=== PATIENT | male | born 1960 ===

== ENCOUNTER 2017-06-19 11:12 | Emergency (ER) | payer BC ==
--- NOTE | 2017-06-19 13:56 | C.PDOC ---
History Of Present Illness 56 year old male presents to the ED for evaluation of left lower back pain which has been constant for the past 3 days. Patient states the pain radiates down to his buttocks. Patient reports he has a job that requires constant heavy lifting and bending over, which has been worsening his pain. He denies urinary/ bowel incontinence, urinary/bowel incontinence, upper/lower extremity numbness/ weakness. Time Seen by Provider: 06/19/17 11:51 Chief Complaint (Nursing): Lower Extremity Problem/Injury History Per: Patient History/Exam Limitations: no limitations Onset/Duration Of Symptoms: Days (3) Current Symptoms Are (Timing): Still Present Additional History Per: Patient Past Medical History Reviewed: Historical Data, Nursing Documentation, Vital Signs Vital Signs: Last Vital Signs Temp 98.0 F 06/19/17 14:28 Pulse 80 06/19/17 14:28 Resp 18 06/19/17 14:28 BP 136/72 06/19/17 14:28 Pulse Ox 100 06/19/17 16:41 - Medical History PMH: HTN Surgical History: No Surg Hx Family History: States: Unknown Family Hx - Social History Hx Alcohol Use: Yes Hx Substance Use: No - Immunization History Hx Tetanus Toxoid Vaccination: Yes Hx Influenza Vaccination: No Hx Pneumococcal Vaccination: No Review Of Systems Genitourinary: Negative for: Incontinence Musculoskeletal: Positive for: Back Pain (left-sided, lower ) Neurological: Negative for: Weakness, Numbness Physical Exam - Physical Exam Appears: Non-toxic, No Acute Distress Skin: Normal Color, Warm, Dry, No Rash Head: Atraumatic, Normacephalic Eye(s): bilateral: Normal Inspection, PERRL, EOMI Oral Mucosa: Moist Neck: Normal ROM, No Midline Cervical Tenderness, No Paracervical Tenderness, Supple Chest: Symmetrical, No Deformity, No Tenderness Cardiovascular: Rhythm Regular, No Friction Rub, No Murmur Respiratory: Normal Breath Sounds, No Rales, No Rhonchi, No Wheezing Gastrointestinal/Abdominal: Soft, No Tenderness Back: No Vertebral Tenderness, Paraspinal Tenderness (left, lumbar ) Extremity: Normal ROM, No Tenderness, Capillary Refill (less than 2 seconds ), No Deformity, No Swelling Neurological/Psych: Normal Speech, Normal Cognition, Normal Sensation Gait: Steady ED Course And Treatment O2 Sat by Pulse Oximetry: 100 (on RA) Pulse Ox Interpretation: Normal Medical Decision Making Medical Decision Making: Progress: Flexeril PO and Toradol IM. On re-exam, the patient reports improvement of symptoms. Lungs are CTA, heart is RRR, abdomen is soft, non-tender and tolerating PO well. Ambulatory in the ED with steady gait. Follow up with the medical doctor with 1-2 days. return if worsened. Disposition - Disposition Referrals: Connor Gordillo MD [Staff Provider] - Disposition: HOME/ ROUTINE Disposition Time: 13:53 Condition: GOOD Additional Instructions: Follow up with the medical doctor/clinic within 1-2 days, Return if worsened. Prescriptions: Cyclobenzaprine [Cyclobenzaprine HCl] 10 mg PO BID #14 tab Naproxen [Naprosyn] 500 mg PO BID #20 tab Instructions: Sciatica (DC) Forms: [employer] (Danish), School Excuse Print Language: BURKINAN - Clinical Impression Clinical Impression: Sciatica - PA / STOCK TAKER / Resident Statement MD/DO has reviewed & agrees with the documentation as recorded. - Scribe Statement The provider has reviewed the documentation as recorded by the Scribe (Carlee Alex) All medical record entries made by the Scribe were at my direction and personally dictated by me. I have reviewed the chart and agree that the record accurately reflects my personal performance of the history, physical exam, medical decision making, and the department course for this patient. I have also personally directed, reviewed, and agree with the discharge instructions and disposition.
[2017-06-19 14:31] VITALS: BP 136/72; PULSE 80; RESP 18; TEMP 98
[2017-06-19 16:38] VITALS: O2SAT 100
== END 2017-06-19 14:32 | disposition home or self-care (01) ==
LOC: C.ER 11:12
DX: M54.30 Sciatica, unspecified side (principal); I10 Essential (primary) hypertension
CPT/HCPCS: 96372; 99284; J1885

== ENCOUNTER 2017-06-23 12:15 | Emergency (ER) | payer BC ==
[2017-06-23 12:54] VITALS: TEMP 97.9
[2017-06-23] MEDS ORDERED: Lidocaine 5% Patch TD ONE (13:31)
--- NOTE | 2017-06-23 15:04 | C.PDOC ---
History Of Present Illness 56-year-old male, presents to the emergency department with complaints of left buttock pain that radiates down the back of his left thigh. Patient states he was seen by PMD and given medication, which he took with minimal relief, resulting in him coming to the ED for evaluation. Patient denies numbness/ weakness, bladder/bowel incontinence, dysuria/hematuria, or any other associated symptoms. PMD Connor Gordillo MD. Time Seen by Provider: 06/23/17 13:16 Chief Complaint (Nursing): Lower Extremity Problem/Injury History Per: Patient History/Exam Limitations: no limitations Past Medical History Reviewed: Historical Data, Nursing Documentation, Vital Signs Vital Signs: Last Vital Signs Temp 97.9 F 06/23/17 15:18 Pulse 86 06/23/17 15:18 Resp 20 06/23/17 15:18 BP 115/67 06/23/17 15:18 Pulse Ox 97 06/23/17 15:18 - Medical History PMH: HTN Family History: States: No Known Family Hx - Social History Hx Alcohol Use: No Hx Substance Use: No - Immunization History Hx Tetanus Toxoid Vaccination: Yes Hx Influenza Vaccination: No Hx Pneumococcal Vaccination: No Review Of Systems Except As Marked, All Systems Reviewed And Found Negative. Constitutional: Negative for: Fever, Chills Gastrointestinal: Negative for: Nausea, Vomiting Genitourinary: Negative for: Dysuria, Hematuria Musculoskeletal: Positive for: Other (Left buttock and thigh). Negative for: Back Pain Skin: Negative for: Rash Neurological: Negative for: Weakness, Numbness Physical Exam - Physical Exam Appears: Non-toxic, No Acute Distress Skin: Warm, Dry, No Rash Head: Normacephalic Neck: Normal ROM Cardiovascular: Rhythm Regular, No Murmur Respiratory: Normal Breath Sounds, No Accessory Muscle Use Extremity: Tenderness (left buttock and posterior left thigh. ), No Calf Tenderness, No Deformity, No Swelling Neurological/Psych: Oriented x3, Normal Speech ED Course And Treatment O2 Sat by Pulse Oximetry: 98 (RA) Pulse Ox Interpretation: Normal Medical Decision Making Medical Decision Makiny/o M comes in w/ Left buttock and thigh pain Plan: * Patient treated with Valium, Prednisone and Tramadol. * Reassess and Disposition Re-evaluation Patient is resting comfortable and in no acute distress. Pain has improved. Patient will be discharged for outpatient f/u with PMD or clinic. All questions answered. Patient is agreeable with plan. Disposition Counseled Patient/Family Regarding: Diagnosis, Need For Followup, Rx Given - Disposition Disposition: HOME/ ROUTINE Disposition Time: 15:00 Condition: STABLE Additional Instructions: Audra bañuelos doctor . [place] [facility]. Prescriptions: diaZEpam [Valium] 5 mg PO TID #12 tab Ibuprofen [Motrin] 600 mg PO TID #15 tab Forms: [employer] (Argentine), Gen Discharge Inst Argentine - POA Present On Arrival: None - Clinical Impression Clinical Impression: Sciatica of left side - Scribe Statement The provider has reviewed the documentation as recorded by the Scribe (Aimee Petty) All medical record entries made by the Scribe were at my direction and personally dictated by me. I have reviewed the chart and agree that the record accurately reflects my personal performance of the history, physical exam, medical decision making, and the department course for this patient. I have also personally directed, reviewed, and agree with the discharge instructions and disposition.
[2017-06-23 15:19] VITALS: BP 115/67; PULSE 86; RESP 20
[2017-06-23 17:21] VITALS: O2SAT 98
[2017-06-24] MEDS ORDERED: Lidocaine 5% Patch TD SCH (10:00)
== END 2017-06-23 15:19 | disposition home or self-care (01) ==
LOC: C.ER 12:15
DX: M54.32 Sciatica, left side (principal); I10 Essential (primary) hypertension

== ENCOUNTER 2018-05-14 12:11 | Emergency (ER) | payer OTHER, BC | END 2018-05-14 15:03 | disposition home or self-care (01) | LOC: C.ER 12:11 ==